=== PATIENT | male | born 1955 | race African-American/Black ===

== ENCOUNTER 2019-08-12 18:25 | Emergency (ER) | payer OTHER ==
[2019-08-12 19:11] VITALS: BP 155/95
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
== END 2019-08-13 00:04 | disposition home or self-care (01) ==
LOC: ED 18:25
DX: M54.2 Cervicalgia (principal); R07.89 Other chest pain; M79.10 Myalgia, unspecified site; I10 Essential (primary) hypertension; E11.9 Type 2 diabetes mellitus without complications; E78.00 Pure hypercholesterolemia, unspecified; F17.200 Nicotine dependence, unspecified, uncomplicated; Z79.899 Other long term (current) drug therapy; V89.2XXA Person injured in unspecified motor-vehicle accident, traffic, initial encounter; Y93.89 Activity, other specified; Y92.488 Other paved roadways as the place of occurrence of the external cause; Y99.8 Other external cause status
CPT/HCPCS: 71046; 72040; 99284